=== PATIENT | female | born 1960 | race African-American/Black ===

== ENCOUNTER 2016-11-25 11:00 | Emergency (ER) | payer BC | END 2016-11-25 12:10 | disposition home or self-care (01) | LOC: ER 11:00 | PROC: 2W3TX1Z Immobilization of Left Foot using Splint (ICD-10-PCS; principal; 2016-11-25) | DX: M79.672 Pain in left foot (principal); I10 Essential (primary) hypertension; E11.9 Type 2 diabetes mellitus without complications; E78.00 Pure hypercholesterolemia, unspecified; Z88.0 Allergy status to penicillin; Z91.040 Latex allergy status | CPT/HCPCS: 73630-LT; 99283 ==